=== PATIENT | female | born 1955 | race Caucasian/White ===

== ENCOUNTER 2017-03-25 08:57 | Emergency (ER) | payer OTHER ==
[~2017-03-25] VITALS: Ht 162.6 cm; Wt 104.7 kg
[~2017-03-25 08:57] MED LIST: AMLO5TAB4 PO; ASPI-621 PO; GABA800T2 PO; LISI-167 PO; LISI40TA PO; METF500T4 PO; METF500T9 PO; METO25TA35 PO; OXYC10TA47 PO; PROP40TA PO; TRAM100T13 PO; TRAM100T3 PO; VENL25TA PO
[2017-03-25] MEDS ORDERED: HYDROmorphone 1 MG/ML, 1ML IM ONE (10:00)
[2017-03-25] MEDS ORDERED: DIAZEPAM 5 MG TABLET PO ONE (10:00)
[2017-03-25] MEDS ORDERED: DIAZEPAM 5 MG TABLET ONE (10:05)
[2017-03-25] MEDS ORDERED: HYDROmorphone 2 MG/ML, 1ML ONE (10:05)
[2017-03-25] MEDS ORDERED: PROP20TA PO (10:21)
[2017-03-25] MEDS ORDERED: ALPR-475 PO (10:21)
[2017-03-25] MEDS ORDERED: ACYC-114 PO (10:21)
[2017-03-25] MEDS ORDERED: VENL75CA6 PO (10:21)
[2017-03-25] MEDS ORDERED: LISI1TAB5 PO (10:21)
[2017-03-25] MEDS ORDERED: DULA0.75 INJ (10:21)
[2017-03-25] MEDS ORDERED: DEXAMETHASONE 4 MG TABLET ONE (12:11)
[2017-03-25] MEDS ORDERED: DEXAMETHASONE 4 MG/ML, 1ML ONE (12:16)
[2017-03-25] MEDS ORDERED: DEXAMETHASONE 4 MG/ML, 1ML PO ONE (12:30)
[2017-03-25 12:44] VITALS: BP 107/57
== END 2017-03-25 12:46 | disposition home or self-care (01) ==
LOC: ED 11:41
DX: M51.16 Intervertebral disc disorders with radiculopathy, lumbar region (principal)
CPT/HCPCS: 72131; 96372; 99284; J1100; J1170